=== PATIENT | male | born 1960 | race Caucasian/White ===

== ENCOUNTER → 2021-04-13 09:05 | Outpatient (CLI) | payer OTHER, SELFPAY ==
--- NOTE | 2021-04-13 09:12 | DI.RAD.S_ITS ---
PROCEDURE: XR KUB INDICATIONS: Follow-up kidney stone. TECHNIQUE: One view of the abdomen acquired. COMPARISON: [facility], , CT ABDOMEN/PELVIS WITH CONTRAST, 04/10/2021, 3:30. FINDINGS: Surgical changes and devices: None. Bowel: Bowel gas pattern is normal. Soft tissues: The left proximal ureteral stone seen on the comparison CT dated 04/10/2021 is visualized on the current radiograph. Calcific densities in pelvis are noted, which most likely pelvic phleboliths. Visualized solid organ contours appear normal in size. Bones: No suspicious bony lesions. IMPRESSION: The left proximal ureteral stone seen on the comparison CT is not visualized on the current radiograph. Dictated by: Momo Estrada M.D. on 04/13/2021 at 12:07 Approved by: Momo Estrada M.D. on 04/13/2021 at 12:13
== END ==
PROVIDERS: PCP Student in an Organized Health Care Education/Training Program; Referring Provider Specialist; Visit Provider Specialist
DX: Z09 Encounter for follow-up examination after completed treatment for conditions other than malignant neoplasm (principal); Z87.442 Personal history of urinary calculi
CPT/HCPCS: 74018

== ENCOUNTER → 2021-04-13 12:57 | Outpatient (CLI) | payer OTHER, SELFPAY ==
[2021-04-13 13:25] LABS: COVID19 -Nasal RAPID Negative (Negative)
== END ==
PROVIDERS: PCP Student in an Organized Health Care Education/Training Program; Referring Provider Specialist; Visit Provider Specialist
DX: Z20.822 Contact with and (suspected) exposure to COVID-19 (principal)
CPT/HCPCS: 87635

== ENCOUNTER 2021-04-13 16:46 | Day surgery (SDC) | payer OTHER, SELFPAY ==
--- NOTE | 2021-04-13 | DI.RAD.S_ITS ---
PROCEDURE: XR ABDOMEN 1V INDICATIONS: left kidney stent placement TECHNIQUE: Single AP fluoroscopic view view of the abdomen acquired. COMPARISON: None. FINDINGS: Single intraoperative fluoroscopic image of the abdomen demonstrates presence of a left-sided ureteral stent. Proximal aspect of the stent projects over the expected location of the left kidney. The distal margin of the stent is not included in the field of view. IMPRESSION: Intraoperative fluoroscopic support demonstrating presence of left ureteral stent. Please see procedural note for further details. Dictated by: Crispin Judge M.D. on 04/14/2021 at 8:38 Approved by: Crispin Judge M.D. on 04/14/2021 at 8:39
[2021-04-13 17:07] VITALS: BMI 33.9
[2021-04-13 17:13] VITALS: BP 146/98; PULSE 54; RESP 47; TEMP 36.7; O2SAT 16
[2021-04-13] MEDS: LACTATED RINGERS 1,000 ML 42 ML IV (17:18)
--- NOTE | 2021-04-13 17:53 | PM.PREOP ---
Pre-operative Note Interval Note History & Physical reviewed/Exam performed by Physician: Yes Changes to H&P: No
[2021-04-13] MEDS: CEFAZOLIN 2 GM/20 ML SYRINGE IV (19:35)
--- NOTE | 2021-04-13 19:48 | SUR.OPER ---
Lithotomy on padded OR bed, head on pillow, arms secured on padded arm boards at <90 degrees abduction. Legs secured in padded yellow fins stirrups.
--- NOTE | 2021-04-13 19:52 | P.OP_ITS ---
Operative Date/Time/Diagnoses Date of procedure: 04/13/21 Time of procedure: 19:52 Pre-op diagnosis: 1. Obstructing 4 x 8 mm left proximal ureteral calculus. 2. Intractable left renal colic. Post-op diagnosis: same Procedure & Clinicians Procedure: 1. Cystoscopy/left ureteral stone manipulation without removal. 2. Cystoscopy/placement left ureteral stent (7 Norwegian by 22-32 multi-length). 3. Cystoscopy/dilation mid bulbar urethral stricture. Same procedure as scheduled: No (Bulbar urethral stricture required dilation) Indications: 1. Obstructing 4 x 8 mm left proximal ureteral calculus. 2. Intractable left renal colic. Surgeon: Larry Fernando Click Yes if Unassisted: Yes Anesthesia Type: General Operative Notes Findings: 1. 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 2. External sphincter-coapted with normal overlying urothelium. 3. Prostate-4+ cm length with moderately obstructing lateral lobe hyperplasia and elevated median bar. 4. Bladder-1 to 2+ trabeculation. Normal ureteral orifices bilaterally. Elevated bladder neck due to enlarged median lobe min elevated median bar. Closure Type: not applicable Specimen(s): none sent Applied: other (7 x 22-32 multi-length ureteral stent) Estimated Blood Loss (mL): 0 Blood products transfused: none Tourniquet time (min): 0 Procedure in detail: The patient was positioned in supine was administered general anesthesia. He was then repositioned semi lithotomy and the lower abdomen, genitalia, and groin were then prepped and draped sterile fashion. A 22 Norwegian panendoscope was then introduced lower urinary tract with the findings as described above. They rounded and polished beak of the panendoscope was then carefully and reflected downward and successfully passed through the narrow stricture ends with subsequent dilation/disruption. Scope was advanced more proximally. A 0.35 hybrid ureteral guidewire was then selected and advanced through the working port of the panendoscope and advanced in left collecting system under direct and fluoroscopic guidance. Over this a 7 Norwegian by 22-32 cm multi-length stent was selected. The stent was also advanced under direct and fluoroscopic guidance and positioned satisfactorily in the left collecting system. NO RETRIEVAL LINE WAS LEFT ATTACHED. The bladder is then drained completely and all instrumentation removed. The patient was repositioned supine, was awakened, transferred to [facility], and transferred to recovery in stable condition. Complications: none Post-operative Condition: stable Disposition: PACU Plan for aftercare: Discharge home
[2021-04-13 19:57] VITALS: BP 142/92; PULSE 54; RESP 11; TEMP 36.3; O2SAT 96
[2021-04-13 20:00] VITALS: BP 142/85; PULSE 54; RESP 16; O2SAT 98
[2021-04-13] MEDS: ONDANSETRON 4 MG/2 ML INJ IV (20:10)
[2021-04-13 20:12] VITALS: BP 136/84; PULSE 50; RESP 13; O2SAT 98
[2021-04-13 20:18] VITALS: BP 139/87; PULSE 50; RESP 15; O2SAT 97
[2021-04-13 20:22] VITALS: BP 141/86; PULSE 51; RESP 20; O2SAT 96
[2021-04-13] MEDS: HYDROCODONE/ACET 5/325 TABLET 1 TAB PO (20:27)
== END 2021-04-13 20:30 | disposition home or self-care (01) ==
PROVIDERS: PCP Student in an Organized Health Care Education/Training Program; Referring Provider Specialist; Visit Provider Specialist
PROC: (CPT 52330; principal; 2021-04-13 18:00)
DX: N20.1 Calculus of ureter (principal); N35.912 Unspecified bulbous urethral stricture, male; N40.1 Benign prostatic hyperplasia with lower urinary tract symptoms; N13.8 Other obstructive and reflux uropathy; R97.20 Elevated prostate specific antigen [PSA]; Z20.822 Contact with and (suspected) exposure to COVID-19; Z09 Encounter for follow-up examination after completed treatment for conditions other than malignant neoplasm; Z87.442 Personal history of urinary calculi
CPT/HCPCS: 52330; 52332; 51798; 74018; 76000; 81002; 87635; J0690; J2250; J2405; J2704; J3010

== ENCOUNTER → 2021-05-06 09:03 | Outpatient (CLI) | payer OTHER, SELFPAY ==
[2021-05-06 10:42] LABS: COVID19 -Nasal RAPID Negative (Negative)
== END ==
PROVIDERS: PCP Student in an Organized Health Care Education/Training Program; Referring Provider Specialist; Visit Provider Specialist
DX: Z20.822 Contact with and (suspected) exposure to COVID-19 (principal)
CPT/HCPCS: 87635; C9803

== ENCOUNTER 2021-05-07 06:21 | Day surgery (SDC) | payer OTHER, SELFPAY ==
[2021-05-07] VITALS (8 sets, daily range): BP systolic 125–168; BP diastolic 71–99; PULSE 50–68; RESP 11–16; TEMP 35.8–36.7; O2SAT 95–100; BMI 33.2
--- NOTE | 2021-05-07 | DI.RAD.S_ITS ---
PROCEDURE: XR KUB INDICATIONS: Left ureteral calculus TECHNIQUE: One view of the abdomen acquired. COMPARISON: [facility], RG, CT ABDOMEN/PELVIS WITH CONTRAST, 04/10/2021, 3:30. [facility], CR, XR ABDOMEN 1V, 04/13/2021, 20:52. [facility], CR, XR KUB, 04/13/2021, 9:05. FINDINGS: Surgical changes and devices: A left-sided ureteral stent is present. Tubing related to a gastric lap band is again noted in the upper abdomen. Bowel: Bowel gas pattern is normal. Soft tissues: No suspicious abdominal calcifications. Visualized solid organ contours appear normal in size. Bones: No suspicious bony lesions. IMPRESSION: Left ureteral stent in expected position. No definite renal or ureteral calculus is seen. If needed, CT KUB could be obtained for further evaluation. Dictated by: Shady Pace M.D. on 05/07/2021 at 7:49 Approved by: Shady Pace M.D. on 05/07/2021 at 7:53
--- NOTE | 2021-05-07 07:33 | PM.PREOP ---
Pre-operative Note Interval Note History & Physical reviewed/Exam performed by Physician: Yes Changes to H&P: No
--- NOTE | 2021-05-07 07:36 | SUR.OPER ---
Lithotomy on padded OR bed, head on pillow, arms secured on padded arm boards at <90 degrees abduction. Legs secured in padded yellow fins stirrups.
[2021-05-07] MEDS: LACTATED RINGERS 1,000 ML 42 ML IV ×2 (07:37→08:29)
[2021-05-07] MEDS: CEFAZOLIN 2 GM/20 ML SYRINGE IV (07:52)
[2021-05-07] MEDS: IOPAMIDOL 15 ML VIAL INJ (08:15)
--- NOTE | 2021-05-07 09:04 | PM.OP.1 ---
Operative Date/Time/Diagnoses Date of procedure: 05/07/21 Time of procedure: 09:04 Pre-op diagnosis: 7 mm left proximal ureteral calculus Retained left ureteral stent Post-op diagnosis: same Procedure & Clinicians Procedure: 1. Cystoscopy/left ureteroscopic laser lithotripsy. 2. Cystoscopy/left ureteral stent exchange. Same procedure as scheduled: Yes Indications: 1. Obstructing 7 mm left proximal ureteral calculus. 2. Retained right ureteral stent. Surgeon: Larry Fernando Click Yes if Unassisted: Yes Anesthesia Type: General Operative Notes Findings: 1. Urethra-normal caliber without annular stricture or lesion. 2. External sphincter-coapted with normal overlying urothelium. 3. Prostate-4 cm length with moderate lateral lobe hyperplasia. 4. Bladder-expected edema and hyperemia surrounding an intact left ureteral stent. Right ureteral orifice is normal. Bladder at 1+ trabeculation. No lesions or stones seen. 5. Left ureter-the index calculus was partially imbedded in the posterior medial wall of the ureter at approximately L3/L4. The intrarenal collecting system had a bifid configuration without noted stone. Closure Type: not applicable Specimen(s): none sent Applied: other (6 x 22-32 cm multi-length stent) Estimated Blood Loss (mL): 0 Blood products transfused: none Procedure in detail: The patient was positioned in supine was administered general anesthesia. He was then repositioned in semi lithotomy and the lower abdomen, genitalia, and groin were then prepped and draped in sterile fashion. The 22 Jamaican panendoscope was then passed the lower urinary tract with the findings as described above. The foreign body grasper was used to engage the distal end of the stent and it was then withdrawn so that the distal end of the stent was positioned just distal to the urethral meatus. A 0.35 hybrid guidewire was then advanced through the stent under fluoroscopic guidance. The retained stent was then backloaded off the wire and discarded. Next, a dual lumen ureteral access sheath was advanced over this wire under direct and fluoroscopic guidance. A 2nd wire was then passed through the 2nd lumen again under fluoroscopic guidance. The ureteral access sheath was then backloaded off both wires. One of the wires was attached to the surgical drape. The flexible ureteral scope was then prepared was advanced over the other wire and advanced proximally under fluoroscopic guidance. Back guidance wire was then removed. Meticulous search for the calculus was undertaken. Intraoperative pyelogram was performed and each of the calices was inspected. The stone was located in approximately the same position at at initial imaging and diagnosis. It was seen to be partially imbedded in the posterior medial wall of the ureter. Once attached clot was removed using hydrostatic and mechanical means stone was then well visualized and with manipulation was positioned within the ureteral lumen. A 200 micron laser fiber was then selected. All operating room personnel and patient were fitted with laser safety eyewear. Lithotripsy was then commenced with excellent resultant fragmentation. Most of the sand and particles were then evacuated from the ureteral lumen using a combination of hydrostatic and mechanical agitation. The flexible ureteral scope was then removed in its entirety. The safety wire was then backloaded into the 22 Jamaican panendoscope. Over this a 6 Jamaican by 22-32 cm multi-length stent was positioned in the left collecting system under direct and fluoroscopic guidance. A RETRIEVAL LINE WAS LEFT ATTACHED. The bladder was then drained and all instrumentation was removed. The patient was repositioned in supine, was awakened, and and then was transferred to recovery in stable condition. Complications: none Post-operative Condition: stable Disposition: PACU Plan for aftercare: Discharge home
--- NOTE | 2021-05-07 09:21 | DI.RAD.S_ITS ---
PROCEDURE: XR KUB INDICATIONS: STENT PLACEMENT, STONE REMOVAL VIA LAZER TECHNIQUE: One view of the abdomen acquired. COMPARISON: [facility], , XR KUB, 05/07/2021, 7:06. FINDINGS: Intraoperative fluoroscopic views of nephroureteral stent placement are demonstrated. IMPRESSION: Intraoperative views of stent placement. Dictated by: Amos Rodriguez M.D. on 05/07/2021 at 9:42 Approved by: Amos Rodriguez M.D. on 05/07/2021 at 9:43
[2021-05-14 13:45] LABS: Ca oxalate dihydrate 90 % (.); Ca oxalate monohydr 10 % (.); Size 2x2 mm (.)
== END 2021-05-07 10:35 | disposition home or self-care (01) ==
PROVIDERS: PCP Student in an Organized Health Care Education/Training Program; Referring Provider Specialist; Visit Provider Specialist
PROC: (CPT 52356; principal; 2021-05-07 07:45)
DX: N20.1 Calculus of ureter (principal); N40.1 Benign prostatic hyperplasia with lower urinary tract symptoms; N13.8 Other obstructive and reflux uropathy; R97.20 Elevated prostate specific antigen [PSA]; I10 Essential (primary) hypertension
CPT/HCPCS: 52356; 74018; 76000; 82365; 82962; C1771; J0690; J1100; J2405; J2704; J3010

== ENCOUNTER → 2021-05-27 12:47 | Outpatient (CLI) | payer OTHER, SELFPAY | PROVIDERS: PCP Student in an Organized Health Care Education/Training Program; Referring Provider Specialist; Visit Provider Specialist | DX: N20.1 Calculus of ureter (principal); R30.0 Dysuria | CPT/HCPCS: 52310; 81002; 87086 ==

== ENCOUNTER → 2021-07-26 10:51 | Outpatient (CLI) | payer OTHER, SELFPAY ==
[2021-07-26 12:26] LABS: Uric Acid 6.1 mg/dL (3.5-8.5)
[2021-07-27 11:41] LABS: Calcium 8.5 mg/dL (8.6-10.2); Parathyroid Hormone, Intact 30 pg/mL (15-65)
== END ==
PROVIDERS: PCP Student in an Organized Health Care Education/Training Program; Referring Provider Specialist; Visit Provider Specialist
DX: N20.1 Calculus of ureter (principal)
CPT/HCPCS: 36415; 82310; 83970; 84550

== ENCOUNTER → 2021-07-28 09:49 | Outpatient (CLI) | payer OTHER, SELFPAY ==
[2021-07-28 11:20] LABS: Prostate Specific Antigen 2.82 ng/mL (0.10-4.00)
== END ==
PROVIDERS: PCP Student in an Organized Health Care Education/Training Program; Referring Provider Specialist; Visit Provider Specialist
DX: R97.20 Elevated prostate specific antigen [PSA] (principal); N40.1 Benign prostatic hyperplasia with lower urinary tract symptoms; N13.8 Other obstructive and reflux uropathy; Z87.442 Personal history of urinary calculi; Z87.898 Personal history of other specified conditions
CPT/HCPCS: 36415; 51798; 81002; 84153

== ENCOUNTER → 2021-09-06 14:36 | Outpatient (CLI) | payer OTHER, SELFPAY ==
--- NOTE | 2021-09-06 15:10 | DI.RAD.S_ITS ---
PROCEDURE: XR KUB INDICATIONS: left ureteral calculus TECHNIQUE: One view of the abdomen acquired. COMPARISON: [facility], CR, XR KUB, 05/07/2021, 7:06. [facility], CR, XR ABDOMEN 1V, 04/13/2021, 20:52. [facility], CR, XR KUB, 05/07/2021, 9:16. FINDINGS: Surgical changes and devices: Gastric lap band device. Bowel: Bowel gas pattern is normal. Soft tissues: No suspicious abdominal calcifications. Visualized solid organ contours appear normal in size. Bones: No suspicious bony lesions. IMPRESSION: No definite renal stone identified by plain film radiograph. If clinically indicated, CT KUB could be obtained for additional evaluation. Dictated by: Roseanna Reyes MD, PhD on 09/06/2021 at 17:20 Approved by: Roseanna Reyes MD, PhD on 09/06/2021 at 17:22
[2021-09-06 17:31] LABS: Prostate Specific Antigen 3.42 ng/mL (0.10-4.00)
== END ==
PROVIDERS: PCP Student in an Organized Health Care Education/Training Program; Referring Provider Specialist; Visit Provider Specialist
DX: R97.20 Elevated prostate specific antigen [PSA] (principal); N20.1 Calculus of ureter
CPT/HCPCS: 36415; 74018; 84153

== ENCOUNTER → 2021-11-22 12:51 | Outpatient (CLI) | payer OTHER, SELFPAY ==
[2021-11-22 14:48] LABS: Hemoglobin A1C% w Est Avg Glu 5.6 % (4.0-6.0)
[2021-11-22 15:23] LABS: Cortisol Random 3.75 ug/dL
[2021-11-22 15:25] LABS: Free T3, Triiodothyronine Free 4.69 pg/mL (2.77-5.27); Free T4, Direct Thyroxine 0.84 ng/dL (0.78-2.19)
[2021-11-22 15:38] LABS: Thyroid Stimulating Hormone 2.52 uIU/mL (0.47-4.68)
[2021-11-23 09:09] LABS: Thyroid Peroxidase Antibodies 31 IU/mL (0-34)
[2021-11-23 15:12] LABS: Progesterone, Total 0.34 ng/mL
[2021-11-23 15:28] LABS: Estradiol, Total 24.3 pg/mL
[2021-11-23 19:07] LABS: Anti Thyroglobulin Antibody <1.0 IU/mL (0.0-0.9); Deamidated Gliadin Ab IgA 6 units (0-19); Deamidated Gliadin Ab IgG 1 units (0-19); Immunoglobulin A,Qn 320 mg/dL (61-437); t-Transglutaminase IgA <2 U/mL (0-3)
[2021-11-26 21:50] LABS: Testosterone Free 4.55 ng/dL (5.00-21.00); Testosterone Total 197.8 ng/dL (264.0-916.0)
[2021-12-08 12:51] LABS: Dehydroepiandrosterone (DHEA) 84
== END ==
PROVIDERS: PCP Student in an Organized Health Care Education/Training Program; Referring Provider Acupuncturist; Visit Provider Acupuncturist
DX: E03.9 Hypothyroidism, unspecified (principal); R53.83 Other fatigue; R68.82 Decreased libido
CPT/HCPCS: 36415; 82533; 82627; 82670; 82784; 83036; 83516; 84144; 84402; 84403; 84439; 84443; 84481; 86376; 86800

== ENCOUNTER → 2022-02-09 10:33 | Outpatient (CLI) | payer OTHER, SELFPAY ==
[2022-02-09 11:59] LABS: Basophils Absolute Auto 100 /uL (0-100); Basophils Percent Auto 1.3 % (0-2); Eosinophils Absolute Auto 100 /uL (0-450); Eosinophils Percent Auto 2.8 % (2-4); Hematocrit 48.2 % (41-53); Hemoglobin 16.5 g/dL (13.5-17.5); Lymphocytes Absolute Auto 1100 /uL (1100-4500); Lymphocytes Percent Auto 25.6 % (25-40); Mean Corpuscular HGB Conc 34.3 % (30-36); Mean Corpuscular Hemoglobin 30.5 PG (26-34); Mean Corpuscular Volume 88.9 fL (80-100); Monocytes Absolute Auto 400 /uL (0-900); Monocytes Percent Auto 9.8 % (3-14); Neutrophils Absolute Auto 2600 /uL (1500-7000); Neutrophils Percent Auto 60.5 % (50-75); Platelet Count 121 X10^3/uL (150-400); Red Blood Cell Count 5.42 X10^6/uL (4.5-5.9); Red Cell Distribution Width 14.1 % (11.6-14.8); White Blood Cell Count 4.3 X10^3/uL (4.5-11.0)
[2022-02-09 12:06] LABS: HEMOLYSIS < 15 (0-50); Iron 116 ug/dL (49-181)
[2022-02-09 12:09] LABS: Add Manual Diff / Slide Review SLIDE REVIEW
[2022-02-09 12:17] LABS: Percent Iron Saturation 32 % (20-50); Total Iron Binding Capacity 360 ug/dL (261-462); Transferrin 277 mg/dL (206-381)
[2022-02-09 12:24] LABS: Vitamin D 25 Hydroxy (D3) 69.2 ng/mL (30.0-100.0)
[2022-02-09 12:35] LABS: Platelet Estimate Decr; RBC Morphology Norm
[2022-02-09 12:38] LABS: Prostate Specific Antigen 3.91 ng/mL (0.10-4.00); Thyroid Stimulating Hormone 3.47 uIU/mL (0.47-4.68)
[2022-02-09 12:42] LABS: Ferritin 63 ng/mL (18-464)
[2022-02-12 16:47] LABS: Free T3, Triiodothyronine Free 4.96 pg/mL (2.77-5.27); Free T4, Direct Thyroxine 0.93 ng/dL (0.78-2.19)
[2022-02-19 12:23] LABS: Percent Free Testosterone 3.29 % (1.50-4.20); Testosterone Free 30.69 ng/dL (5.00-21.00); Testosterone Total 932.8 ng/dL (264.0-916.0)
[2022-02-27 22:22] LABS: Dehydroepiandrosterone (DHEA) 534
== END ==
PROVIDERS: PCP Student in an Organized Health Care Education/Training Program; Referring Provider Acupuncturist; Visit Provider Acupuncturist
DX: E03.8 Other specified hypothyroidism (principal); R53.83 Other fatigue; R68.82 Decreased libido
CPT/HCPCS: 36415; 82306; 82627; 82728; 83540; 83550; 84153; 84402; 84403; 84439; 84443; 84481; 85025

== ENCOUNTER → 2022-05-05 12:11 | Outpatient (CLI) | payer OTHER, SELFPAY ==
[2022-05-05 13:21] LABS: Hemoglobin A1C% w Est Avg Glu 5.4 % (4.0-6.0)
[2022-05-05 13:22] LABS: Chloride 102 mmol/L (98-107); HEMOLYSIS 20 (0-50)
[2022-05-05 13:25] LABS: Alanine Aminotransferase 54 IU/L (<50); Albumin 4.6 g/dL (3.5-5.0); Albumin Globulin Ratio 1.4 (1.0-2.8); Alkaline Phosphatase 80 U/L (38-126); Aspartate Aminotransferase 40 IU/L (17-59); BUN Creatinine Ratio 21.4 (6-22); Bilirubin Total 0.7 mg/dL (0.2-1.3); Blood Urea Nitrogen 21 mg/dL (9-20); Calcium 9.2 mg/dL (8.4-10.2); Carbon Dioxide 24 mmol/L (22-32); Estimated Glomerular Filt Rate > 60 mL/min (>60); Globulin 3.3 g/dL (1.7-4.1); Glucose 85 mg/dL (80-110); Potassium 4.9 mmol/L (3.4-5.1); Sodium 137 mmol/L (137-145); Total Protein 7.9 g/dL (6.3-8.2)
[2022-05-05 13:40] LABS: Free T3, Triiodothyronine Free 5.83 pg/mL (2.77-5.27); Free T4, Direct Thyroxine 0.89 ng/dL (0.78-2.19)
[2022-05-05 13:52] LABS: Prostate Specific Antigen 3.85 ng/mL (0.10-4.00)
[2022-05-05 13:54] LABS: Thyroid Stimulating Hormone 1.04 uIU/mL (0.47-4.68)
[2022-05-06 10:03] LABS: Insulin Level Total 19.9 uIU/mL (2.6-24.9)
[2022-05-09 16:31] LABS: Estradiol, Total 63.1 pg/mL
[2022-05-11 12:18] LABS: Leptin 8.7 ng/mL (.)
[2022-05-14 12:27] LABS: Percent Free Testosterone 4.41 % (1.50-4.20); Testosterone Free 45.31 ng/dL (5.00-21.00); Testosterone Total 1027.5 ng/dL (264.0-916.0)
== END ==
PROVIDERS: PCP Student in an Organized Health Care Education/Training Program; Referring Provider Acupuncturist; Visit Provider Acupuncturist
DX: E03.9 Hypothyroidism, unspecified (principal); R53.83 Other fatigue; R68.82 Decreased libido
CPT/HCPCS: 36415; 80053; 82542; 82670; 83036; 83520; 83525; 84153; 84402; 84403; 84439; 84443; 84481

== ENCOUNTER → 2022-08-15 12:57 | Outpatient (CLI) | payer OTHER, SELFPAY ==
[2022-08-15 14:18] LABS: Add Manual Diff / Slide Review SLIDE REVIEW; Basophils Absolute Auto 0 /uL (0-100); Basophils Percent Auto 0.2 % (0-2); Eosinophils Absolute Auto 0 /uL (0-450); Eosinophils Percent Auto 0.1 % (2-4); Hematocrit 48.6 % (41-53); Hemoglobin 16.5 g/dL (13.5-17.5); Lymphocytes Absolute Auto 600 /uL (1100-4500); Lymphocytes Percent Auto 13.3 % (25-40); Mean Corpuscular HGB Conc 33.9 % (30-36); Mean Corpuscular Hemoglobin 30.3 PG (26-34); Mean Corpuscular Volume 89.2 fL (80-100); Monocytes Absolute Auto 100 /uL (0-900); Monocytes Percent Auto 1.7 % (3-14); Neutrophils Absolute Auto 3700 /uL (1500-7000); Neutrophils Percent Auto 84.7 % (50-75); Platelet Count 146 X10^3/uL (150-400); Red Blood Cell Count 5.45 X10^6/uL (4.5-5.9); Red Cell Distribution Width 13.5 % (11.6-14.8); White Blood Cell Count 4.4 X10^3/uL (4.5-11.0)
[2022-08-15 14:39] LABS: Alanine Aminotransferase 46 IU/L (<50); Albumin 4.6 g/dL (3.5-5.0); Albumin Globulin Ratio 1.3 (1.0-2.8); Alkaline Phosphatase 63 U/L (38-126); Aspartate Aminotransferase 30 IU/L (17-59); Bilirubin Total 0.7 mg/dL (0.2-1.3); Blood Urea Nitrogen 18 mg/dL (9-20); Calcium 9.3 mg/dL (8.4-10.2); Carbon Dioxide 27 mmol/L (22-32); Chloride 103 mmol/L (98-107); Estimated Glomerular Filt Rate > 60 mL/min (>60); Globulin 3.6 g/dL (1.7-4.1); Glucose 126 mg/dL (80-110); HEMOLYSIS < 15 (0-50); Potassium 4.3 mmol/L (3.4-5.1); Sodium 139 mmol/L (137-145); Total Protein 8.2 g/dL (6.3-8.2)
[2022-08-15 14:44] LABS: High Sensitivity CRP - Cardiac < 0.3 mg/L (1.0-3.0)
[2022-08-15 15:02] LABS: Free T3, Triiodothyronine Free 5.23 pg/mL (2.77-5.27); Free T4, Direct Thyroxine 0.91 ng/dL (0.78-2.19)
[2022-08-15 15:09] LABS: Cortisol Random 21.2 ug/dL; Prostate Specific Antigen 3.21 ng/mL (0.10-4.00)
[2022-08-15 15:12] LABS: RBC Morphology Normal Morphology
[2022-08-15 15:13] LABS: Ferritin 64 ng/mL (18-464); Platelet Morphology Comment NOTE
[2022-08-15 15:15] LABS: Thyroid Stimulating Hormone 0.271 uIU/mL (0.47-4.68)
[2022-08-15 17:12] LABS: Estradiol, Total 28.4 pg/mL
[2022-08-16 07:53] LABS: Labcorp Hemoglobin (Hb) A1c 5.1 % (4.8-5.6)
[2022-08-17 07:59] LABS: Insulin Level Total 16.2 uIU/mL (2.6-24.9)
[2022-08-17 13:02] LABS: Leptin 21.7 ng/mL (.)
[2022-08-24 11:45] LABS: Melanocyte Stim Hormone 25 pg/mL (0-40)
== END ==
PROVIDERS: PCP Student in an Organized Health Care Education/Training Program; Referring Provider Acupuncturist; Visit Provider Acupuncturist
DX: E03.9 Hypothyroidism, unspecified (principal); R68.82 Decreased libido
CPT/HCPCS: 36415; 80053; 82306; 82533; 82670; 82728; 83036; 83519; 83520; 83525; 84153; 84439; 84443; 84481; 85025; 86140

== ENCOUNTER → 2023-11-20 17:10 | Outpatient (CLI) | payer MEDICARE, OTHER, SELFPAY ==
--- NOTE | 2023-11-20 17:14 | DI.RAD.S_ITS ---
PROCEDURE: XR KUB INDICATIONS: Kidney stones TECHNIQUE: One view of the abdomen acquired. COMPARISON: [facility], CR, XR KUB, 09/06/2021, 15:12. FINDINGS: Surgical changes and devices: Gastric band. Bowel: Scattered small bowel and colonic gas. No dilated loops of bowel seen. Soft tissues: No kidney stones identified. No suspicious abdominal calcifications. Visualized solid organ contours appear normal in size. Bones: No suspicious bony lesions. IMPRESSION: No kidney stones identified. Dictated by: Cas Rodriguez M.D. on 11/21/2023 at 8:50 Approved by: Cas Rodriguez M.D. on 11/21/2023 at 8:53
== END ==
PROVIDERS: Referring Provider Specialist; Visit Provider Specialist
DX: Z87.442 Personal history of urinary calculi (principal); Z09 Encounter for follow-up examination after completed treatment for conditions other than malignant neoplasm
CPT/HCPCS: 74018